=== PATIENT | female | born 1965 | race Caucasian/White ===

== ENCOUNTER → 2017-02-11 | Outpatient (CLI) | payer OTHER | END | disposition home or self-care (01) | LOC: LABWHC1 11:52 | PROVIDERS: ATTEND Specialist | DX: E55.9 Vitamin D deficiency, unspecified (principal); R63.5 Abnormal weight gain; M79.609 Pain in unspecified limb; M25.50 Pain in unspecified joint; R51 Headache; R53.83 Other fatigue; R79.9 Abnormal finding of blood chemistry, unspecified; R10.9 Unspecified abdominal pain; L27.2 Dermatitis due to ingested food; N94.6 Dysmenorrhea, unspecified | CPT/HCPCS: 36415; 82306; 82670; 83090; 83735; 84144; 84439; 84443; 84481; 84482 ==

== ENCOUNTER → 2020-07-25 | Outpatient (CLI) | payer OTHER ==
[2020-07-25 14:24] LABS: Appearance,Urine Clear (Clear); Bilirubin,Urine Negative (Negative); Blood,Urine Negative (Negative); Color,Urine Light Yellow; Glucose,Urine (UA) Negative (Negative); Ketones,Urine 1+ (Negative); Leukocyte Esterase,Urine Negative (Negative); Nitrite,Urine Negative (Negative); Protein,Urine Negative (Negative); Specific Gravity,Urine 1.013 (1.001-1.035); Urobilinogen,Urine <2.0 mg/dL (<2.0)
[2020-07-26 01:37] LABS: Basophils # (A) 0.04 X 10*3/uL (0.00-0.10); Basophils % (A) 0.7 %; Eosinophils % (A) 1.7 %; HGB 13.5 g/dL (12.0-15.0); Lymphocytes # (A) 2.32 X 10*3/uL (0.90-5.00); Lymphocytes % (A) 38.8 %; MCH 31.3 pg (27.0-32.0); MCHC 32.9 g/dL (32.0-37.0); MCV 95.1 fL (80.0-97.0); Mean Platelet Volume 11.3 fL (9.5-12.2); Monocytes # (A) 0.34 X 10*3/uL (0.20-1.00); Monocytes % (A) 5.7 %; Neutrophils # (A) 3.16 X 10*3/uL (1.80-7.70); Neutrophils % (A) 52.8 %; Platelet Count 270 X 10*3/uL (140-440); RBC 4.31 X 10*6/uL (4.10-5.20); RDW 13.7 % (11.5-14.5); WBC 5.98 X 10*3/uL (4.50-10.00)
[2020-07-26 04:20] LABS: Erythrocyte Sedimentation Rate 4 mm/Hr (0-30)
[2020-07-26 09:19] LABS: Anti-Smith Ab Interp NEGATIVE (NEGATIVE)
[2020-07-26 09:29] LABS: ALT 21 U/L (8-44); AST 26 U/L (13-35); African American GFR (CKD) 95.5 (60.0-200.0); Albumin/Globulin Ratio 2.35 (1.60-3.17); Alkaline Phosphatase 57 U/L (41-126); C Reactive Protein <0.4 mg/dL (0.0-0.8); Calcium 9.9 mg/dL (8.7-10.3); Chloride 105 mmol/L (96-109); Creatine Kinase 217 U/L (26-186); Glucose 81 mg/dL (70-110); Magnesium 1.9 mg/dL (1.5-2.4); Non-African American GFR(CKD) 82.4 (60.0-200.0); Potassium 4.6 mmol/L (3.5-5.5); Sodium 142 mmol/L (135-145); Total Bilirubin 0.6 mg/dL (0.3-1.2); Total Protein 6.7 g/dL (6.2-8.2)
[2020-07-26 17:45] LABS: Vitamin D, 1, 25-Dihydroxy 89 pg/mL (20 - 79)
[2020-07-27 08:06] LABS: Vitamin E (Alpha Tocopherol) 1399 ug/dL (500-1800)
== END | disposition home or self-care (01) ==
LOC: LABWHC1 12:17
PROVIDERS: ATTEND Nurse Practitioner Family
DX: M25.50 Pain in unspecified joint (principal); M79.2 Neuralgia and neuritis, unspecified
CPT/HCPCS: 36415; 80053; 81003; 82550; 82607; 82652; 83036; 83519; 83735; 84207; 84425; 84446; 84590; 84591; 84597; 85025; 85652; 86140; 86200; 86235